=== PATIENT | female | born 1955 | race African-American/Black ===

== ENCOUNTER → 2016-07-10 | Day surgery (SDC) | payer OTHER ==
--- NOTE | 2016-07-14 14:15 | PATH ---
Surgical Pathology Report Patient Name: MIR CHRISTIANSON [facility]. Rec. #: [id number] /Age/Gender: 1955 (Age: 60) / F Account: [id number] Location: [facility] Taken: 07/10/2016 Received: 07/10/2016 Reported: 07/14/2016 Physicians: Ventura Garcia M.D. Specimen(s) Received LEFT BREAST SPECIMEN WITH MASS Clinical History Nonpalpable lesion, suspicious, highly suspicious/malignant Final Diagnosis LEFT BREAST, NEEDLE CORE BIOPSY: INVASIVE MAMMARY CARCINOMA WITH MUCINOUS FEATURES, INTERMEDIATE NUCLEAR GRADE, MEASURING 0.5 CM IN LENGTH MEASURED ON THE SLIDE. Results of Estrogen Receptor (ER) and Progesterone Receptor (WA) studies performed at [facility] are as follows: ER (clone [id number] mouse monoclonal antibody by [employer]): >95% nuclear staining with moderate intensity (Positive). WA (clone16 mouse monoclonal antibody by [employer]) : 0% nuclear staining (Negative). Positive and negative controls (internal if applicable) show appropriate results. Formalin fixation and cold ischemic times are within current ASCO/CAP recommendations for ER, WA and Her2 testing. Comment: Also see prior specimen [id number]. Assays for HER-2 and Ki67 are pending, and a report will follow. This case was discussed with BALDO Griffiths of Dr. Henderson office on July 14, 2015. Electronically Signed Usama Cope M.D. Addendum Reported: 07/15/2016 Addendum Diagnosis Results of Her2 (IHC) & Ki-67 studies performed at [place], [place] ([id number]) are as follows: Her2 IHC (EP3 from [employer], formerly known as [id number], using Pinzon Polymer Refine detection kit): 3+ POSITIVE Ki-67:~20% (Intermediate proliferative index) Positive and negative controls (internal if applicable) show appropriate results. Usama Cope M.D. Gross Description Received in formalin, labeled "left breast with mass," is a 2.5 x 2.3 x 0.3 cm aggregate of multiple salmon-yellow, irregular to cylindrical portions of fibroadipose tissue. The formalin is filtered and the specimen is entirely submitted in one cassette. Time to formalin fixation: 5 minutes Total formalin fixation time: Approximately 9 hours. 07/11/2016 saudi07/11/2016
== END | disposition home or self-care (01) ==
LOC: FMAMMOTONE 11:38
PROVIDERS: ATTEND Surgery
PROC: 0HBU3ZX Excision of Left Breast, Percutaneous Approach, Diagnostic (ICD-10-PCS; principal; 2016-07-10)
DX: N63 Unspecified lump in breast (principal); C50.312 Malignant neoplasm of lower-inner quadrant of left female breast
CPT/HCPCS: 19081; 88305-TC; 88342-TC

== ENCOUNTER 2016-07-31 12:18 | Day surgery (SDC) | payer OTHER ==
--- NOTE | 2016-07-10 14:24 | HP ---
Admitting History and Physical - Primary Care Physician PCP: Heike Henderson - Admission Chief Complaint: Metastatic breast cancer History of Present Illness: 60 year old postmenapausal female who was noted to have left breast thickening by her PCOP US showed edematous changes through out whole breat and markedly highly suspicious axillary lymph nodes. Mammogram showed diffuse thickening and mass 8 to 9:00 and 2:00. Left US core bx showed metastatic breast cancer consistent with breast Her2 positive. Left breast stereotactic core done today results pending. History Source: Patient - Past Medical History Additional Past Medical History: G6PD deficiency - Past Surgical History Past Surgical History: Yes: Additional Past Surgical History: 1978 benignthyroid tumor excised hernia repair 1993 right shoulder fibroid excised - Smoking History Smoking history: Never smoked Aproximately how many cigarettes per day: 0 - Alcohol/Substance Use Hx Alcohol Use: Yes (social) Home Medications - Allergies Allergies/Adverse Reactions: Allergies Allergy/AdvReac Type Severity Reaction Status Date / Time povidone-iodine Allergy Unknown Verified 01/21/12 13:55 [From Betadine] soap [From Betadine] Allergy Unknown Verified 01/21/12 13:55 Sulfa (Sulfonamide Allergy Unknown Verified 01/21/12 13:55 Antibiotics) [Sulfa(Sulfonamide Antibiotics)] aspirin Allergy Verified 07/10/16 14:36 vijay granger Allergy Verified 07/10/16 14:36 nitrofurazone [From Furacin] Allergy Verified 07/10/16 14:38 quinine Allergy Verified 07/10/16 14:37 - Home Medications Home Medications: Ambulatory Orders No Home Medications 0 dose .ROUTE UTDICT 01/21/12 Oxycodone HCl/Acetaminophen [Percocet 5-325 mg Tablet] 1 - 2 combo PO Q6H #0 tablet 01/21/12 Family Disease History - Family Disease History Family Disease History: CA: Grandparent (mat GM breast ca 61), Mother ( Breast ca 54) Physical Examination Constitutional: Yes: Well Nourished, No Distress Breast(s): Yes: Other (Left breast is larger and heavier than right . Core bx changes S/P bx skin thickening and peau d'orange in central left breast nipple retraction enlarge firm nodes left axilla Right breast and axilla negative) Problem List - Problems (1) Metastatic breast cancer Code(s): C50.919 - MALIGNANT NEOPLASM OF UNSP SITE OF UNSPECIFIED FEMALE BREAST C79.9 - SECONDARY MALIGNANT NEOPLASM OF UNSPECIFIED SITE Assessment/Plan Life port insertion
[2016-07-10 16:50] VITALS: BMI 36.9
[2016-07-31] MEDS ORDERED: ONDANSETRON 4 MG/2 ML VIAL IVPB PRN (15:18)
[2016-07-31] MEDS ORDERED: MIDAZOLAM HCL 2 MG/2 ML SINGLE DOSE VIAL ONE (15:27)
[2016-07-31] MEDS ORDERED: DEXTROSE 5%-0.45% SALINE 1,000 ML IV SCH (15:30)
[2016-07-31] MEDS ORDERED: ceFAZolin SODIUM 1 GM VIAL ONE (15:56)
[2016-07-31] MEDS ORDERED: KETOROLAC TROMETHAMINE 30 MG/1 ML VIAL ONE (16:03)
[2016-07-31] MEDS ORDERED: DEXAMETHASONE SOD PHOSPHATE 4 MG/1 ML VIAL ONE (16:03)
[2016-07-31] MEDS ORDERED: ONDANSETRON 4 MG/2 ML VIAL ONE (16:03)
[2016-07-31 17:41] VITALS: PULSE 71; TEMP 97.9
[2016-07-31 19:00] VITALS: BP 156/95
--- NOTE | 2016-08-01 15:33 | OP ---
DATE OF OPERATION: 07/31/2016 PREOPERATIVE DIAGNOSIS: Left breast cancer. POSTOPERATIVE DIAGNOSIS: Left breast cancer. PROCEDURE: Insertion of Lifeport. SURGEON: Heike Henderson MD and Luther Casas MD PRODUCT EVANGELIST: BALDO Mar ANESTHESIA: Local with 1% lidocaine and IV sedation. SPECIMEN: None. ESTIMATED BLOOD LOSS: Minimal. INDICATION FOR PROCEDURE: The patient is a 60-year-old female who noted left breast thickening. Imaging showed suspicious masses in the left breast. Core biopsy showed invasive cancer in the breast and metastatic disease to a lymph node. She is going to the operating room for placement of a Lifeport so she can start chemotherapy. The procedure, risks, and complications were discussed with the patient and her family prior to surgery. DESCRIPTION OF PROCEDURE: The patient was identified in the holding area. Informed consent was obtained. The right chest was marked for laterality. She was taken to the operating room and placed on the operating table in the supine position. Sequential compression devices were placed on both legs. She received antibiotics prior to surgery. She was sedated. The right chest and neck were prepped and draped in the usual fashion. A timeout was performed. An attempt was made to access the subclavian vein percutaneously. This was unsuccessful. The ultrasound was then used to identify the subclavian, and the vein was accessed under ultrasound guidance. A wire was then placed through the needle, and the needle was removed. A pocket was created in the right chest wall by incising the skin with a scalpel after infiltrating 1% lidocaine. A pocket was created, and the catheter was assembled by attaching the catheter to the port. It was flushed with heparinized saline. It was then placed into the pocket on the chest wall. The wire was then brought into the pocket created in the chest wall . The introducer and sheath were then placed over the wire, and the wire was removed. This was done under fluoroscopic guidance which showed the catheter entering easily. The catheter was then placed into the introducer. The catheter was placed easily into the vein and was seen to be entering the right chest under fluoroscopic guidance. The port was accessed through the skin. Good blood return was returned, and the port flushed easily. The port was then flushed with heparin. The incision was then closed. The skin was infiltrated with 0.5% Marcaine. After several sutures were placed, bleeding was noted from within the wound. The wound was opened, and a small amount of oozing was noted around the catheter entry site into the vein. Direct pressure was held, and the bleeding stopped. The incision was then closed using interrupted sutures of 3-0 Vicryl for the dermis and a running subcuticular closure of 4-0 Monocryl for the skin. The wound was cleaned, and a sterile dressing was applied. This was Steri-Strips and gauze plus tape acting as a pressure dressing. The patient tolerated the procedure well. She was taken to the ambulatory surgical area in satisfactory condition. A postprocedure chest x-ray showed no evidence of pneumothorax. Ventura [id number] MTDD
== END 2016-07-31 18:40 | disposition home or self-care (01) ==
LOC: FASU 12:18
PROVIDERS: ATTEND Surgery
PROC: B546ZZA Ultrasonography of Right Subclavian Vein, Guidance (ICD-10-PCS; 2016-07-31)
PROC: 05H533Z Insertion of Infusion Device into Right Subclavian Vein, Percutaneous Approach (ICD-10-PCS; principal; 2016-07-31 13:45)
DX: C50.912 Malignant neoplasm of unspecified site of left female breast (principal)
CPT/HCPCS: 71010-TC; 76000-TC; J1644

== ENCOUNTER 2017-03-06 06:34 | Inpatient (IN) | payer OTHER ==
--- NOTE | 2017-03-02 12:04 | HP ---
Admitting History and Physical - Primary Care Physician PCP: Heike Henderson - Admission Chief Complaint: left breast cancer History of Present Illness: 61 yo female s/p neoadjuvant chemo for a left breast cancer with mucinous features and positive left axillary lymph nodes, underwent a PET scan on 2016 which revealed that the previously seen left breast mass and left axillary adenopathy was no longer visualized. Cancer was ER pos/AR neg Her 2 pos. Patient is now to undergo right MRM with reconstruction. History Source: Patient Limitations to Obtaining History: No Limitations - Past Medical History Additional Past Medical History: G6PD deficiency - Past Surgical History Past Surgical History: Yes: Additional Past Surgical History: exc of benign thyroid lesion (1978) (1993) hernia repair () righ shoulder lesion removed () - Smoking History Smoking history: Never smoked Have you smoked in the past 12 months: No Aproximately how many cigarettes per day: 0 If you are a former smoker, when did you quit?: 1999 - Alcohol/Substance Use Hx Alcohol Use: Yes (social) Home Medications - Allergies Allergies/Adverse Reactions: Allergies Allergy/AdvReac Type Severity Reaction Status Date / Time povidone-iodine Allergy Unknown Verified 07/10/16 16:32 [From Betadine] soap [From Betadine] Allergy Unknown Verified 07/10/16 16:32 Sulfa (Sulfonamide Allergy Unknown Verified 07/10/16 16:32 Antibiotics) [Sulfa(Sulfonamide Antibiotics)] aspirin Allergy Verified 07/10/16 16:32 vijay granger Allergy Verified 07/10/16 16:32 nitrofurazone [From Furacin] Allergy Verified 07/10/16 16:32 quinine Allergy Verified 07/10/16 16:32 - Home Medications Home Medications: Ambulatory Orders Telmisartan/Amlodipine [Telmisartan-Amlodipine 40-5 mg] 1 tab PO DAILY 07/10/16 Oxycodone HCl/Acetaminophen [Percocet 5-325 mg Tablet] 1 - 2 tab PO Q6H PRN #20 tab MDD 6 07/31/16 Family Disease History - Family Disease History Family Disease History: CA: Grandparent (mat GM breast ca 61), Mother ( Breast ca 54) Review of Systems - Review of Systems Cardiovascular: reports: No Symptoms Respiratory: reports: No Symptoms Physical Examination Constitutional: Yes: Well Nourished, Calm Breast(s): Yes: Other (Skin thickening and peau d'orange in the central left breast has resolved. No nipple retraction noted. Palpable left 12-1 oclock 4 cm mass. No other suspicious masses or adenopathy noted bilaterally.) Problem List - Problems (1) Metastatic breast cancer Code(s): C50.919 - MALIGNANT NEOPLASM OF UNSP SITE OF UNSPECIFIED FEMALE BREAST C79.9 - SECONDARY MALIGNANT NEOPLASM OF UNSPECIFIED SITE Assessment/Plan Plan: Left MRM with bilateral reconstruction
[2017-03-06] MEDS ORDERED: ceFAZolin SODIUM 1 GM VIAL ONE ×4 (08:00→20:37)
[2017-03-06] MEDS ORDERED: SUCCINYLCHOLINE CHLORIDE 200 MG/10 ML VIAL ONE (08:00)
[2017-03-06] MEDS ORDERED: PROPOFOL 20 ML ONE ×2 (08:00)
[2017-03-06] MEDS ORDERED: ROCURONIUM BROMIDE 50 MG/5 ML VIAL ONE ×2 (08:01→09:11)
[2017-03-06] MEDS ORDERED: MIDAZOLAM HCL 2 MG/2 ML SINGLE DOSE VIAL ONE (08:01)
[2017-03-06] MEDS ORDERED: SODIUM CHLORIDE 0.9% P/F 10 ML VIAL IJ ONE ×2 (08:03→08:45)
[2017-03-06] MEDS ORDERED: LIDOCAINE HCL/PF 2% SDV 5ML VIAL ONE (08:05)
[2017-03-06] MEDS ORDERED: ONDANSETRON 4 MG/2 ML VIAL IVPB PRN (08:18)
[2017-03-06] MEDS ORDERED: ACETAMINOPHEN 325 MG TABLET (FP) PO PRN (08:18)
[2017-03-06] MEDS ORDERED: ZOLPIDEM TARTRATE 5 MG TABLET PO PRN (08:18)
[2017-03-06] MEDS ORDERED: LIDOCAINE HCL 2% JELLY (5 ML/TUBE) ONE (08:23)
[2017-03-06] MEDS ORDERED: ceFAZolin SODIUM 1 GM VIAL IVPB ONE (08:40)
[2017-03-06] MEDS ORDERED: ePHEDrine SULFATE 50 MG/1 ML AMPULE ONE (08:45)
[2017-03-06] MEDS ORDERED: hydrALAZINE HCL 20 MG/ML VIAL ONE (09:22)
[2017-03-06] MEDS ORDERED: HYDROmorphone HCL/PF 1 MG/ML VIAL (FOR PYXIS CHARGING ONLY) ONE (09:51)
[2017-03-06] MEDS ORDERED: GENTAMICIN SO4 80 MG/2 ML VIAL ONE (10:10)
--- NOTE | 2017-03-06 13:39 | OP ---
Operative Note - Note: Operative Date: 03/06/17 Pre-Operative Diagnosis: left breast cancer Operation: left breast reconstruction with tissue kitchen supervisor and ADM, right breast reduction Findings: above Implants: natrelle [id number] Post-Operative Diagnosis: Same as Pre-op Surgeon: Calvin Moreland Check Writer Salesperson: Jamarcus Gao Anesthesia: General Specimens Removed: skin left breast, skin and tissue right breast Estimated Blood Loss (mls): 200 Drains & Tubes with Location: mario x 1 right, x2 left
[2017-03-06] MEDS ORDERED: HYDROmorphone *PCA* 10MG/50ML DISP.SYRIN PCA ONE (13:47)
[2017-03-06] MEDS ORDERED: HYDROmorphone HCL CARPU-JECT 2 MG/1 ML DISP.SYRIN ONE (13:47)
[2017-03-06] MEDS ORDERED: HYDROmorphone HCL CARPU-JECT 1 MG/1 ML DISP.SYRIN IVPUSH PRN (13:53)
[2017-03-06] MEDS ORDERED: DEXAMETHASONE SOD PHOSPHATE 4 MG/1 ML VIAL IVPUSH PRN (13:54)
[2017-03-06] MEDS ORDERED: PROMETHAZINE HCL 25 MG/1 ML VIAL IVPB PRN (13:54)
[2017-03-06] MEDS ORDERED: HYDROmorphone *PCA* 10MG/50ML DISP.SYRIN PCA SCH (14:00)
--- NOTE | 2017-03-06 17:38 | SURG ---
Surgery Newspaper Photographer Note Newspaper Photographer: Jamarcus Gao PA-C Date of Service: 03/06/17 Diagnosis: left breast cancer Procedure: Left breast reconstruction with tissue tube lancer and ADM, right breast reduction I was present for the entirety of the operative procedure. For further detail, please refer to operative report. Visit type - Case Type Case Type: Scheduled Admission - New patient This patient is new to me today: Yes Date on this admission: 03/06/17
[2017-03-06] MEDS: DEXTROSE 5%-0.45% SALINE 1,000 ML IV SCH (17:50)
[2017-03-06] MEDS: CEFAZOLIN 1 GM/D5W 50 ML IVPB SCH ×2 (17:53→18:07)
[2017-03-06] MEDS ORDERED: DEXTROSE 5%-WATER - 50 ML IVPB ONE (20:38)
[2017-03-06] MEDS: CEFAZOLIN 1 GM in DEXTROSE 5%-WATER - 50 ML IVPB SCH (21:24)
[2017-03-06] MEDS ORDERED: amLODIPine BESYLATE 10 MG TABLET (FP) PO SCH (22:00)
[2017-03-07] MEDS ORDERED: ceFAZolin SODIUM 1 GM VIAL ONE ×4 (02:16→20:16)
[2017-03-07] MEDS ORDERED: DEXTROSE 5%-WATER - 50 ML IVPB ONE ×4 (02:16→20:16)
[2017-03-07] MEDS: CEFAZOLIN 1 GM in DEXTROSE 5%-WATER - 50 ML IVPB SCH ×4 (02:33→20:23)
[2017-03-07] MEDS: DEXTROSE 5%-0.45% SALINE 1,000 ML IV SCH ×2 (02:33→09:58)
--- NOTE | 2017-03-07 07:51 | OP ---
DATE OF OPERATION: 03/06/2017 PREOPERATIVE DIAGNOSIS: Left breast cancer. POSTOPERATIVE DIAGNOSIS: Left breast cancer. PROCEDURE: Left modified radical mastectomy and insertion of tissue trekking guide, right breast reduction. SURGEON: Heike Henderson MD CO-SURGEON: Calvin Moreland MD APPLE PICKER: BALDO Hurley ANESTHESIA: General. SPECIMENS: 1. Left breast and axillary contents. 2. Additional axillary nodes. ESTIMATED BLOOD LOSS: Minimal. DRAINS: Four No. 10 J-P. FINDINGS: See procedure. INDICATION FOR PROCEDURE: The patient is a 61-year-old woman who had abnormal imaging in 2013 but never had the recommended biopsy at that time. In May 2016, her physician noted thickening of the left breast and sent her for bilateral breast ultrasound, which showed edematous changes throughout the left breast and enlarged axillary lymph nodes. Mammogram showed diffuse skin thickening of the left breast and suspicious masses at 8 o'clock to 9 o'clock and at 2 o'clock. Biopsy of the breast masses showed ER positive/KY negative, HER2 positive invasive mammary cancer with mucinous features. Biopsy of a left axilla lymph node showed findings consistent with metastatic carcinoma. She had no evidence of distal metastases on PET CT. She had 6 months of THP chemotherapy. Follow up studies showed a treatment response with persistent skin thickening and edema. She was recommended a left modified radical mastectomy with reconstruction. She is going to the operating room today for the indicated procedure as well as reduction of the right breast. DESCRIPTION OF PROCEDURE: The patient was identified in the holding area. Informed consent was on the chart. The left breast was identified with a marker. Sequential compression devices were placed on both legs. She was taken to the operating room and placed on the operating room table in a supine position. She received antibiotics prior to surgery. General anesthesia was initiated. The right and left breasts and left arm were prepped and draped in the usual fashion. A time-out was performed. Dr. Moreland performed a right breast reduction, which he will dictate in a separate procedure. The left mastectomy was performed first making an elliptical incision around the nipple areolar complex. Examination of the breast did show skin thickening and edema. A superior skin flap was raised using electrocautery. This flap continued towards the clavicle. In a similar fashion, flaps were created medially towards the border with the sternum and laterally to the axilla. Inferiorly, the flap continued to the junction with the abdominal musculature. There were multiple enlarged blood vessels, and bleeding did occur, which was controlled with electrocautery. Once the tissue was completely mobilized, the breast was removed along with the underlying pectoralis major fascia. The axillary dissection was performed in continuity. The tissue at the edge of the pectoralis major was divided, and the dissection continued down along the chest wall. The clavipectoral fascia was incised. This exposed the axillary fat. The axillary vein was identified, and tissue inferior to the axillary vein was included with the dissection. The specimen also included tissue anterior to the anterior dorsi muscle. The tissue and breast were removed and labeled as left breast and axillary contents. The specimen was placed in formalin after being labeled with silk sutures with a long lateral stitch and a short superior stitch. Examination of the operative field showed some chey tissue remaining. This tissue was grasped with a clamp and bluntly dissected free from the axillary tissue. This tissue was sent separately as additional axillary contents. During this procedure, the thoracodorsal nerve was inadvertently severed. It was reapproximated by Dr. Moreland using interrupted sutures of 6-0 nylon. The operative field was inspected for hemostasis. The field was irrigated. The procedure then continued with placement of a tissue trekking guide by Dr. Moreland, which he will dictate as a separate procedure. He will also dictate placement of bilateral drains. At the end of my portion of the procedure, the patient had remained stable throughout the procedure. All lap, sponge, and instrument counts were correct. At the conclusion of the reconstruction, she was taken to the PACU in stable condition. Ventura [id number]
[2017-03-07] MEDS: CEFAZOLIN 1 GM/D5W 50 ML IVPB SCH (08:04)
--- NOTE | 2017-03-07 09:42 | PN ---
Progress Note, Physician Chief Complaint: left breast cancer History of Present Illness: The patient was admitted postoperatively after a left breast modified radical mastectomy with purchasing department clerk reconstruction and right breast mastopexy reduction. - Current Medication List Current Medications: Active Medications Acetaminophen (Tylenol -) 650 mg PO Q4H PRN PRN Reason: FEVER Amlodipine Besylate (Norvasc -) 10 mg PO HS VALERIE Last Admin: 03/06/17 21:24 Dose: Not Given Dexamethasone Sodium Phosphate (Decadron Injection -) 4 mg IVPUSH ONCE PRN PRN Reason: NAUSEA AND/OR VOMITING Diphenhydramine HCl (Benadryl Injection -) 12.5 mg IVPUSH ONCE PRN PRN Reason: FOR ITCHING Docusate Sodium (Colace -) 100 mg PO BID [facility] Heparin Sodium (Porcine) (Heparin -) 5,000 unit SQ BID VALERIE Hydromorphone HCl (Dilaudid Mailroom Associate -) 0 mg SAW OFFBEARER SAW OFFBEARER VALERIE PRN Reason: Protocol Stop: 03/13/17 13:54 Last Admin: 03/07/17 08:03 Dose: Not Given Dextrose/Sodium Chloride (D5-1/2ns -) 1,000 mls @ 100 mls/hr IV ASDIR VALERIE Last Admin: 03/07/17 02:33 Dose: 100 mls/hr Cefazolin Sodium 1 gm/ (Dextrose) 50 mls @ 100 mls/hr IVPB Q6H-IV VALERIE Last Admin: 03/07/17 02:33 Dose: 100 mls/hr Losartan Potassium (Cozaar -) 50 mg PO DAILY [facility] Ondansetron HCl (Zofran Injection) 4 mg IVPB Q6H PRN PRN Reason: NAUSEA AND/OR VOMITING Promethazine HCl (Phenergan Injection -) 12.5 mg IVPB Q6H PRN PRN Reason: NAUSEA AND/OR VOMITING Zolpidem Tartrate (Ambien -) 5 mg PO HS PRN PRN Reason: Insomnia - Objective Vital Signs: Vital Signs Temperature 98.3 F 03/07/17 07:52 Pulse Rate 79 03/07/17 07:52 Respiratory Rate 20 03/07/17 07:52 Blood Pressure 168/89 03/07/17 07:52 O2 Sat by Pulse Oximetry (%) 98 03/06/17 21:00 Constitutional: Yes: Well Nourished, No Distress, Calm Eyes: Yes: WNL HENT: Yes: Atraumatic, Normocephalic Neck: Yes: WNL Cardiovascular: Yes: Regular Rate and Rhythm Respiratory: Yes: Regular, CTA Bilaterally Gastrointestinal: Yes: Normal Bowel Sounds, Soft ...Rectal Exam: Yes: Deferred Genitourinary: Yes: WNL Breast(s): Yes: Other (Wounds clean, dry, and intact. Drains functioning well. Dressing changed.) Extremities: Yes: WNL Integumentary: Yes: WNL Wound/Incision: Yes: Clean/Dry, Well Approximated Neurological: Yes: Alert, Oriented ...Motor Strength: WNL Psychiatric: Yes: WNL Problem List - Problems (1) Metastatic breast cancer Assessment/Plan: The patient is doing well POD#1 s/p left modified radical mastectomy and purchasing department clerk reconstruction with right breast mastopexy reduction. Her wounds are clean, dry, and intact. Dressing changed today. Drains functioning well. She has good kpian control on SAW OFFBEARER. OOB today and remove call today. Continue IV antibiotics. Will stop SAW OFFBEARER in AM tomorrow with possible discharge Thursday or Thursday if good pain control off SAW OFFBEARER. Code(s): C50.919 - MALIGNANT NEOPLASM OF UNSP SITE OF UNSPECIFIED FEMALE BREAST C79.9 - SECONDARY MALIGNANT NEOPLASM OF UNSPECIFIED SITE
[2017-03-07] MEDS ORDERED: HYDROmorphone *PCA* 10MG/50ML DISP.SYRIN PCA SCH (09:44)
--- NOTE | 2017-03-07 09:51 | DS ---
Physical Examination Vital Signs: Vital Signs Temperature 98.3 F 03/07/17 07:52 Pulse Rate 79 03/07/17 07:52 Respiratory Rate 20 03/07/17 07:52 Blood Pressure 168/89 03/07/17 07:52 O2 Sat by Pulse Oximetry (%) 98 03/06/17 21:00 Constitutional: Yes: Well Nourished, No Distress, Calm Eyes: Yes: WNL HENT: Yes: Atraumatic, Normocephalic Neck: Yes: WNL Cardiovascular: Yes: Regular Rate and Rhythm Respiratory: Yes: Regular, CTA Bilaterally Gastrointestinal: Yes: Normal Bowel Sounds, Soft ...Rectal Exam: Yes: Deferred Renal/: Yes: WNL Breast(s): Yes: Other (Mastectomy and breast wounds clean, dry, and intact. Drains functioning well Skin flaps viable.) Musculoskeletal: Yes: WNL Extremities: Yes: WNL Integumentary: Yes: WNL Wound/Incision: Yes: Clean/Dry, Well Approximated Neurological: Yes: Alert, Oriented Psychiatric: Yes: WNL Discharge Summary Reason For Visit: LEFT BREAST CANCER Left breast cancer Procedures: Principal: Left breast Modified Radical Mastectomy with imaging technician reconstruction and right breast reduction mastopexy Hospital Course: The patient was admitted postoperatively for pain and wound management. She did well and had good pain control and wounds were clean, dry, and intact. MANGANESE WHEELER was stopped POD#2 and she was ambulating and was felt stable for discharge by POD#3. She will be sent home on percocet for pain and cefadroxil antibiotics. She will follow up with Dr. Henderson and Dr. Moreland in 1 week. Condition: Good - Instructions Diet, Activity, Other Instructions: Post Operative Instructions - [facility] We hope your recovery will be uneventful. For those of you who have been given general anesthesia, there is a possibility you might have some lightheadedness and possibly nausea. It is important that each patient, especially those who have had general anesthesia, follow these instructions, please: 1. Do NOT operate a motor vehicle for 24 hours. 2. Do NOT drink any alcoholic beverages for 24 hours. 3. Do NOT take any sedatives, narcotics, or tranquilizers for 24 hours unless specifically ordered by your surgeon. 4. Do NOT undertake any strenuous exercise or outside activity for 24 hours unless specifically permitted by your surgeon. 5. Eat light foods that are easy to digest. If you have any problems with nausea and vomiting, lie down and rest. If it continues, call your surgeon. 6. Call your surgeon AT ONCE if you have problems with: a. Bleeding b. Urinating c. Excessive pain or drainage d. Numbness If any problems occur, call your physician first. If you cannot reach him/her, call the Ambulatory Surgery Unit at [phone], or the Emergency Room at . Follow up with Drs. Casas / Romana in 7 days. Medication: Vicodin E-S OR Percocet 1-2 tablets every 4-6 hrs as needed for 5-7 days. Wound Care: Keep wound dry and clean for 48 hours. You may remove the dressing after 48 hours and may shower. Keep steri-strips in place until follow-up appointment No heavy lifting or strenuous activities. BREAST SURGERY INSTRUCTIONS Rashel Casas M.D., FACS Luther Casas M.D., FACS Mendy Avendano M.D., FACS 1. Please call the office at to make a follow up appointment with your surgeon. This number can be also used for any urgent issues you may have. 2. Call us immediately if any of the following occur: *Bleeding from the incision or drain site (a small amount is normal) *Fever or chills *Redness and worsening tenderness around the surgical site *Drainage of pus or fluid from the incision or drain site 3. You may change the surgical dressing two (2) days after your surgery, and may shower then. If you have drains, you may shower after they have been removed, until then take a sponge bath. 4. It is normal for there to be some bruising and tenderness around the surgical site, and the breast may also be firm in this area. 5. Please wear a comfortable bra (sports or surgical bra) all day and all night until your first follow-up visit with your surgeon. 6. The pain medicine you have been prescribed may make you constipated; make sure you drink plenty of water. You may use an over the counter laxative if needed. 7. You may resume your normal diet after surgery, although you may want to avoid rich foods for the first twenty-four (24) hours after surgery. Alcoholic drinks should be avoided while taking the prescribed pain medicine. 8. You may resume normal activities as long as there is no discomfort, but do not do upper body exercises until after your follow-up appointment. Do not lift anything heavier than a large phone book. You may resume driving once you have stopped taking the prescribed pain medicine and feel comfortable doing arm movements. WEAR bra NO shower, empty and record Sb output twice daily Referrals: Heike Henderson MD [Staff Physician] - Calvin Moreland MD [Staff Physician] - Disposition: HOME - Home Medications Comprehensive Discharge Medication List: Ambulatory Orders Amlodipine Besylate 10 mg PO HS 03/06/17 Cefadroxil 500 mg PO BID #20 capsule 03/06/17 Docusate Sodium [Colace -] 100 mg PO BID 03/06/17 Losartan Potassium 50 mg PO DAILY 03/06/17 Oxycodone HCl/Acetaminophen [Percocet 5-325 mg Tablet] 1 - 2 tab PO Q6H PRN #30 tab MDD 6 03/06/17
[2017-03-07] MEDS: LOSARTAN POTASSIUM 50 MG TABLET (FP) PO SCH ×3 (09:58→22:02)
[2017-03-07] MEDS: DOCUSATE SODIUM 100 MG CAPSULE (FP) PO SCH ×3 (10:03→22:02)
[2017-03-07] MEDS: HEPARIN NA (PORCINE) 5,000 UNITS/ML 1ML VIAL SQ SCH ×2 (10:05→22:02)
[2017-03-07] MEDS: amLODIPine BESYLATE 10 MG TABLET (FP) PO SCH (12:08)
--- NOTE | 2017-03-07 14:27 | PN ---
Progress Note (short form) - Note Progress Note: Anesthesiology Post-op/Pain Service POD#1 s/p left breast mastectomy,axillary node dissection with reconstruction and right breast reduction under GA with post-op dilaudid AMPOULE FILLER AND SEALER. Pt. feeling well but does state that when she moves, her pain is close to 10/10 on the left side. She has been using the AMPOULE FILLER AND SEALER with reasonable relief and is hesitant to stop it at this time. Will reevaluate tomorrow and possibly transition to PO meds at that time. Continue AMPOULE FILLER AND SEALER for today. VSS.
[2017-03-08] MEDS: DEXTROSE 5%-0.45% SALINE 1,000 ML IV SCH (00:22)
[2017-03-08] MEDS ORDERED: DEXTROSE 5%-WATER - 50 ML IVPB ONE ×3 (02:48→20:31)
[2017-03-08] MEDS ORDERED: ceFAZolin SODIUM 1 GM VIAL ONE ×4 (02:48→20:30)
[2017-03-08] MEDS: CEFAZOLIN 1 GM in DEXTROSE 5%-WATER - 50 ML IVPB SCH ×4 (03:07→20:55)
[2017-03-08] MEDS: amLODIPine BESYLATE 10 MG TABLET (FP) PO SCH (09:29)
[2017-03-08] MEDS: HEPARIN NA (PORCINE) 5,000 UNITS/ML 1ML VIAL SQ SCH ×2 (09:29→22:31)
[2017-03-08] MEDS: DOCUSATE SODIUM 100 MG CAPSULE (FP) PO SCH ×2 (09:29→22:31)
[2017-03-08] MEDS: ACETAMINOPHEN 325 MG TABLET (FP) PO PRN ×2 (09:32→14:28)
[2017-03-08] MEDS: oxyCODONE HCL 5 MG TABLET PO PRN ×3 (09:42→19:01)
--- NOTE | 2017-03-08 09:56 | PN ---
Progress Note, Physician Chief Complaint: left breast cancer History of Present Illness: The patient was admitted postoperatively after a left breast modified radical mastectomy with rib stiffener and heel dipper reconstruction and right breast mastopexy reduction. - Current Medication List Current Medications: Active Medications Acetaminophen (Tylenol -) 650 mg PO Q4H PRN PRN Reason: FEVER Acetaminophen (Tylenol -) 325 mg PO Q4H PRN PRN Reason: PAIN Stop: 03/11/17 08:00 Last Admin: 03/08/17 09:32 Dose: 325 mg Amlodipine Besylate (Norvasc -) 10 mg PO DAILY [facility] Last Admin: 03/08/17 09:29 Dose: 10 mg Dexamethasone Sodium Phosphate (Decadron Injection -) 4 mg IVPUSH ONCE PRN PRN Reason: NAUSEA AND/OR VOMITING Diphenhydramine HCl (Benadryl Injection -) 12.5 mg IVPUSH ONCE PRN PRN Reason: FOR ITCHING Docusate Sodium (Colace -) 100 mg PO BID [facility] Last Admin: 03/08/17 09:29 Dose: 100 mg Heparin Sodium (Porcine) (Heparin -) 5,000 unit SQ BID [facility] Last Admin: 03/08/17 09:29 Dose: 5,000 unit Cefazolin Sodium 1 gm/ (Dextrose) 50 mls @ 100 mls/hr IVPB Q6H-IV [facility] Last Admin: 03/08/17 09:28 Dose: 100 mls/hr Losartan Potassium (Cozaar -) 50 mg PO HS [facility] Last Admin: 03/07/17 22:02 Dose: 50 mg Ondansetron HCl (Zofran Injection) 4 mg IVPB Q6H PRN PRN Reason: NAUSEA AND/OR VOMITING Oxycodone HCl (Roxicodone -) 5 mg PO Q4H PRN PRN Reason: PAIN Last Admin: 03/08/17 09:42 Dose: 5 mg Promethazine HCl (Phenergan Injection -) 12.5 mg IVPB Q6H PRN PRN Reason: NAUSEA AND/OR VOMITING Zolpidem Tartrate (Ambien -) 5 mg PO HS PRN PRN Reason: Insomnia - Objective Vital Signs: Vital Signs Temperature 98.1 F 03/08/17 07:34 Pulse Rate 68 03/08/17 07:34 Respiratory Rate 20 03/08/17 07:34 Blood Pressure 153/79 03/08/17 07:34 O2 Sat by Pulse Oximetry (%) 95 03/07/17 21:00 Constitutional: Yes: Well Nourished, No Distress, Calm Eyes: Yes: WNL HENT: Yes: Atraumatic, Normocephalic Neck: Yes: WNL Respiratory: Yes: Regular, CTA Bilaterally Gastrointestinal: Yes: Normal Bowel Sounds, Soft ...Rectal Exam: Yes: Deferred Genitourinary: Yes: Other (stress incontinence) Breast(s): Yes: Other (Wounds clean, dry, and intact. Drains functioning well.) Musculoskeletal: Yes: Back Pain Extremities: Yes: WNL Integumentary: Yes: WNL Wound/Incision: Yes: Clean/Dry, Well Approximated Neurological: Yes: Alert, Oriented Psychiatric: Yes: WNL Problem List - Problems (1) Metastatic breast cancer Assessment/Plan: The patient is POD#2 s/p left modified radical mastectomy with rib stiffener and heel dipper reconstruction and right breast reduction mastopexy. Wounds clean, dry, and intact. Drains functioning well. Dressing changed at bedside. Afeb/VSS. Patient taken off INSURANCE ADJUSTOR this AM and is now on percocet. Still complaining of discomfort and with limited ambulation. Will continue OOB ambulating today and likely discharge tomorrow. Will keep on cefadroxil and percocet on discharge. Code(s): C50.919 - MALIGNANT NEOPLASM OF UNSP SITE OF UNSPECIFIED FEMALE BREAST C79.9 - SECONDARY MALIGNANT NEOPLASM OF UNSPECIFIED SITE
--- NOTE | 2017-03-08 19:34 | PN ---
Progress Note (short form) - Note Progress Note: POD #2 - s/p left mastectomy with axillary node dissection, and reconstruction/ right breast reduction under general anesthesia. VSS. Pt. doing well, sitting up comfortably in bed. No complaints. Dilaudid COIN PURSE ASSEMBLER discontinued earlier today. Comfortable with po percocet. No apparent anesthetic complications noted. Continue current care.
[2017-03-08] MEDS: LOSARTAN POTASSIUM 50 MG TABLET (FP) PO SCH (22:31)
[2017-03-09] MEDS: CEPHALEXIN MONOHYDRATE 500 MG CAPSULE (UD) PO SCH ×3 (00:01→12:56)
[2017-03-09] MEDS: oxyCODONE HCL 5 MG TABLET PO PRN ×2 (02:03→09:24)
[2017-03-09 06:58] VITALS: BP 147/91; PULSE 81; TEMP 98.6
[2017-03-09] MEDS: ACETAMINOPHEN 325 MG TABLET (FP) PO PRN (09:30)
[2017-03-09] MEDS: HEPARIN NA (PORCINE) 5,000 UNITS/ML 1ML VIAL SQ SCH ×2 (10:16→10:35)
[2017-03-09] MEDS: DOCUSATE SODIUM 100 MG CAPSULE (FP) PO SCH (10:16)
[2017-03-09] MEDS: amLODIPine BESYLATE 10 MG TABLET (FP) PO SCH (10:16)
--- NOTE | 2017-03-09 10:41 | PN ---
Progress Note, Physician Chief Complaint: left breast cancer History of Present Illness: The patient was admitted postoperatively after a left breast modified radical mastectomy with car driver reconstruction and right breast mastopexy reduction. - Current Medication List Current Medications: Active Medications Acetaminophen (Tylenol -) 650 mg PO Q4H PRN PRN Reason: FEVER Last Admin: 03/08/17 19:00 Dose: 650 mg Acetaminophen (Tylenol -) 325 mg PO Q4H PRN PRN Reason: PAIN Stop: 03/11/17 08:00 Last Admin: 03/09/17 09:30 Dose: 325 mg Amlodipine Besylate (Norvasc -) 10 mg PO DAILY [facility] Last Admin: 03/09/17 10:16 Dose: 10 mg Cephalexin HCl (Keflex -) 500 mg PO Q6HPO [facility] Last Admin: 03/09/17 06:07 Dose: 500 mg Dexamethasone Sodium Phosphate (Decadron Injection -) 4 mg IVPUSH ONCE PRN PRN Reason: NAUSEA AND/OR VOMITING Diphenhydramine HCl (Benadryl Injection -) 12.5 mg IVPUSH ONCE PRN PRN Reason: FOR ITCHING Docusate Sodium (Colace -) 100 mg PO BID [facility] Last Admin: 03/09/17 10:16 Dose: Not Given Heparin Sodium (Porcine) (Heparin -) 5,000 unit SQ BID [facility] Last Admin: 03/09/17 10:35 Dose: Not Given Losartan Potassium (Cozaar -) 50 mg PO HS [facility] Last Admin: 03/08/17 22:31 Dose: 50 mg Ondansetron HCl (Zofran Injection) 4 mg IVPB Q6H PRN PRN Reason: NAUSEA AND/OR VOMITING Oxycodone HCl (Roxicodone -) 5 mg PO Q4H PRN PRN Reason: PAIN Last Admin: 03/09/17 09:24 Dose: 5 mg Promethazine HCl (Phenergan Injection -) 12.5 mg IVPB Q6H PRN PRN Reason: NAUSEA AND/OR VOMITING Zolpidem Tartrate (Ambien -) 5 mg PO HS PRN PRN Reason: Insomnia - Objective Vital Signs: Vital Signs Temperature 98.6 F 03/09/17 06:00 Pulse Rate 81 03/09/17 06:00 Respiratory Rate 20 03/09/17 06:00 Blood Pressure 147/91 03/09/17 06:00 O2 Sat by Pulse Oximetry (%) 95 03/08/17 21:00 Constitutional: Yes: Well Nourished, No Distress, Calm Eyes: Yes: WNL HENT: Yes: Atraumatic, Normocephalic Neck: Yes: WNL Cardiovascular: Yes: Regular Rate and Rhythm Respiratory: Yes: Regular, CTA Bilaterally Gastrointestinal: Yes: Normal Bowel Sounds, Soft ...Rectal Exam: Yes: Deferred Genitourinary: Yes: WNL Breast(s): Yes: Other (mastectomy wound clean, dry, and intact. Drains functioning well.) Musculoskeletal: Yes: WNL Extremities: Yes: WNL Integumentary: Yes: WNL Wound/Incision: Yes: Clean/Dry, Well Approximated Neurological: Yes: Alert, Oriented Psychiatric: Yes: WNL Problem List - Problems (1) Metastatic breast cancer Assessment/Plan: The patient is doing well POD#3 s/p left mastectomy and car driver reconstruction. Wounds clean, dry, and intact. Dressing changed at bedside. Drains functioning well. Good pain control now on percocet. Stable for discharge today. Home on percocet for pain and cefadroxil antibiotics. Son taught GERRI drain managment. Patient to follow up at the end of the week for postoperative follow up. Code(s): C50.919 - MALIGNANT NEOPLASM OF UNSP SITE OF UNSPECIFIED FEMALE BREAST C79.9 - SECONDARY MALIGNANT NEOPLASM OF UNSPECIFIED SITE
--- NOTE | 2017-03-10 16:46 | OP ---
DATE OF OPERATION: 03/06/2017 TITLE OF PROCEDURE: 1. Left-sided breast reconstruction using tissue oliver filter operator. 3. Left-sided breast reconstruction using acellular dermal matrix allograft. 3. Right-sided breast reduction. 4. Spy intraoperative angiography assessment of viability of mastectomy flaps interpretation. PREOPERATIVE DIAGNOSES: 1. Left-sided angiosarcoma of breast. 2. 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 3. Right-sided disproportion of reconstructed breast. INDICATION FOR PROCEDURE: The patient is marked in the holding area. Risks, benefits, and alternatives to the procedure are discussed. The patient is awake and aware of all incisions and resulting scars. She understands the risks inherent of both breast reconstruction with an implant as well as a mastectomy as well as a breast reduction. DESCRIPTION OF PROCEDURE: She is then brought to the operating room and placed in a supine position. She is prepped and draped and positioned by Dr. Heike Henderson and her team. Timeout is called. Patient, procedure, side and sites are verified. Rosales catheter is placed prior to starting the procedure. The patient is given antibiotics preoperatively. Sequential compression devices are applied bilaterally. At this point, the left-sided mastectomy is being performed while I begin the right-sided breast reduction. A medial pedicle is planned which is 11 cm in width. The nipple is sighted at 22 cm from the sternal notch. A Alejandro-type, inverted-T pattern reduction pattern is planned. A 42-mm nipple-areolar cookie cutter is used. The breast is placed under tourniquet. The 11-cm width pedicle is de-epithelialized with the exception of the nipple/areola. At this point, incisions are made along the skin resection pattern and preserving the pedicle to the deep pectoral perforating vessels as well as to the medial skin flap. The tissue in between the pedicle and the skin flaps is excised. The tissue weight is 512 g. Hemostasis is meticulously achieved. A size 10 flat GERRI drain is brought out through the lateral extent of the incision. The inverted-T point is closed first with a half-buried mattress 0 Prolene suture. The remainder of the skin flaps are tailor tacked in position, and closure is then performed with a series of interrupted, buried, deep dermal 3-0 Monocryl suture along the vertical and horizontal limbs, followed by a running subcuticular 3-0 Monocryl suture along the vertical and horizontal limbs. The drain is secured with a 3-0 silk drain suture on the lateral extent of the incision. The nipple/areola is then inset with a series of interrupted, buried, deep dermal 4-0 Monocryl suture, followed by a running subcuticular 4-0 Monocryl suture. The nipple/areola is pink and viable circumferentially around its dermal bleeding border. Attention is then directed toward the left side where the mastectomy was just being completed. I was notified that there was an injury to the thoracodorsal nerve during the mastectomy. This was identified, and using 4-1/2 power loupe magnification, the proximal and distal ends of the thoracodorsal nerve are identified. The injured ends are divided with a fresh 10-blade scalpel until clear of viable healthy fascicles are able to be seen. The repair is then performed with an epineural 7-0 nylon suture circumferentially around the nerve. An anatomic repair is able to be identified with 4-/12 power loupe magnification. The reconstruction was then further performed as follows. The lateral free edge of the pectoralis major muscle is identified. It is elevated, and a subpectoral pocket is dissected, leaving the inferior attachments of the pectoralis major muscle intact. The inframammary fold is lowered 1.5 cm to match the contralateral side inferiorly and laterally. DermACELL acellular dermal matrix is then prepared, oriented, and brought onto the field. It is secured to the inframammary fold and lateral mammary fold with a running, locking 2-0 PDS suture. The wound is copiously irrigated with triple-antibiotic solution. Hemostasis is meticulously achieved. Triple-antibiotic solution is a gram of Ancef, 80 mg gentamicin, and 50,000 units of bacitracin within a liter of saline. An [employer] Systemse 133 [id number] tissue oliver filter operator is brought into the field, handled with only sterile new gloves, instruments, and triple-antibiotic solution; evacuated of all air, placed into the pocket between the pectoralis major muscle and the DermACELL acellular dermal matrix. It is oriented properly using the suture tabs. It is secured at 2 separate points with 2-0 PDS suture. It is inflated to 240 mL of normal saline using a closed-filling system sterilely. The lateral free edge of the pectoralis major muscle is then repaired to the inferior free edge of the acellular dermal matrix. At this point, the skin is tailor tacked. Spy intraoperative angiography is then performed. The Spy is interpreted by Dr. Moreland, and the tissue appeared to be well perfused globally. Free skin edges are excised. The dog ears medial and laterally are excised. Size 10 flat GERRI drains were brought out through lateral stab wound incisions, are secured with 3-0 silk drain sutures. One is placed in the inferior recess of the wound. A second is placed in the superior recess of the wound. Closure is then performed of the mastectomy flaps with a running 3-0 Monocryl suture within the deep fatty capsular tissue of the breast, followed by a series of interrupted, buried, deep dermal 3-0 Monocryl suture, followed by a running, subcuticular 3-0 Monocryl suture. The incisions are dressed with Steri-Strips on both sides. The breast is dressed with fluffs, ABD gauze, and a surgical bra. She is awoken from anesthesia, having tolerated the procedure well, transferred to recovery without complication. SONYA MORELAND M.D. [id number]
--- NOTE | 2017-03-11 12:56 | PATH ---
Surgical Pathology Report Patient Name: MIR CHRISTIANSON Med. Rec. #: [id number] /Age/Gender: 1955 (Age: 61) / F Account: [id number] Location: [facility]G Taken: 03/06/2017 Received: 03/06/2017 Reported: 03/11/2017 Physicians: Santiago Burroughs M.D. Specimen(s) Received A: RIGHT BREAST, REDUCTION B: LEFT BREAST, MASTECTOMY C: LEFT AXILLARY CONTENTS Clinical History Left breast cancer Final Diagnosis A. BREAST, RIGHT, REDUCTION MAMMOPLASTY: BENIGN BREAST TISSUE WITH FIBROCYSTIC CHANGE. BENIGN SKIN. B. BREAST, LEFT, MASTECTOMY: INVASIVE MUCINOUS CARCINOMA WITH MICROPAPILLARY FEATURES, INTERMEDIATE NUCLEAR GRADE. INVASIVE CARCINOMA FOCALITY AND SIZE: LARGEST FOCUS, 3.5 CM (GROSS MEASUREMENT) IN THE UPPER INNER QUADRANT, SEVERAL FOCI OF MICROINVASION ASSOCIATED WTH DCIS IN THE UPPER AND LOWER OUTER QUADRANTS. TREATMENT RELATED CHANGES PRESENT IN THE LARGEST FOCUS OF INVASIVE CARCINOMA (MILD). EXTENSIVE DUCTAL CARCINOMA IN SITU (DCIS), INTERMEDIATE NUCLEAR GRADE, CRIBRIFORM AND MICROPAPILLARY TYPES, WITH CENTRAL COMEDO-TYPE NECROSIS. DCIS EXTENT: DCIS IS MAJOR (>25%), PRESENT IN IN ALL FOUR QUADRANT, IN ASSOCIATION WITH INVASIVE CARCINOMA AND AWAY FROM IT. SURGICAL RESECTION MARGINS: NEGATIVE FOR INVASIVE CARCINOMA; CLOSEST MARGIN (DEEP) IS 2.0 MM AWAY FROM INVASIVE CARCINOMA; DCIS IS FOCALLY 1.0 MM FROM THE DEEP MARGIN. SKIN: NOT INVOLVED BY CARCINOMA. NIPPLE: NOT INVOLVED BY DCIS. LYMPHOVASCULAR INVASION: FOCALLY IDENTIFIED. SURROUNDING BREAST TISSUE: FIBROCYSTIC CHANGES USUAL DUCTAL HYPERPLASIA, DUCT DILATATION AND STROMAL FIBROSIS. PATHOLOGIC STAGING: ympT2 ypN1a (ALSO REFER TO CHECKLIST BELOW) RECEPTOR STATUS: REFER TO CHECKLIST BELOW. Comment: The sections show pools of mucin with scattered cellular foci comprised of neoplastic cellular clusters with micropapillary pattern. Extensive DCIS with foci of microinvasion is also present. Immunohistochemical stains for SMM-HC and p63 performed and interpreted at [facility] on block B12 show focal loss of myoepithelial cells in the areas of microinvasion. C. ADDITIONAL AXILLARY CONTENTS, LEFT, DISSECTION: TWO OF EIGTH LYMPH NODES POSITIVE FOR METASTATIC CARCINOMA (2/8). LARGEST TUMOR DEPOSIT: MULTIPLE RESIDUAL TUMOR FOCI PRESENT, LARGEST IS 0.7 CM. EXTRANODAL EXTENSIONS: NOT IDENTIFIED. EXTENSIVE POST-THERAPEUTIC FIBROSIS PRESENT. Comments Breast Invasive Carcinoma: Surgical Pathology Cancer Case Summary Based on AJCC/UICC TNM, 7th edition Procedure _x_ Total mastectomy (including nipple and skin) Lymph Node Sampling _x_ Axillary dissection (partial or complete dissection) Specimen Laterality _x_ Left Tumor Size: Size of Largest Invasive Carcinoma Greatest dimension of largest focus of invasion over 3.5 cm (35 mm) Tumor Focality Multiple foci of invasive carcinoma Number of foci: 3.5 cm largest focus in the UIQ and several foci of microinvasion associated with DCIS (LOQ and UOQ) Macroscopic and Microscopic Extent of Tumor Skin _x_ Invasive carcinoma does not invade into the dermis or epidermis Nipple _x_ DCIS does not involve the nipple epidermis Skeletal Muscle _x_ Not involved by carcinoma Ductal Carcinoma In Situ (DCIS) _x_ DCIS is present _x_ as a major component (>25% of tumor, extensive intraductal component) Histologic Type of Invasive Carcinoma: _x_ Mucinous carcinoma with micropapillary features Histologic Grade: (Antione Histologic Score) Tubular Differentiation _x_ Score 2 Nuclear Pleomorphism _x_ Score 2 Mitotic Rate _x_ Score 1 Overall Grade _x_ Cannot be determined (mucinous carcinoma with micropapillary features) Margins _x_ Margins uninvolved by invasive carcinoma Distance from closest margin: 2.0 mm Specify margin: deep _x_ DCIS is focally 1.0 mm from the deep margin Lymph-Vascular Invasion _x_ Focally identified Lymph Nodes Total number of lymph nodes examined (sentinel and nonsentinel): 8 Number of sentinel lymph nodes examined: 0 Number of lymph nodes with macrometastases (> 2 mm): 2 Number of lymph nodes with micrometastases (>0.2 mm to 2 mm and/or >200cells):0 Number of lymph nodes with isolated tumor cells (=0.2 mm and =200 cells): 0 Size of largest metastatic deposit (if present): 0.7 cm Extranodal Extension _x_ Not identified Pathologic Staging (pTNM) Primary Tumor (Invasive Carcinoma): ympT2 Regional Lymph Nodes (pN): ypN1a Distant Metastasis (pM): not applicable Biomarker Studies Results of ER and MI studies performed on prior biopsy (D17-20) at [facility] are as follows: ER (clone [id number] mouse monoclonal antibody by [employer]): >95% nuclear staining with moderate intensity (POSITIVE). MI (clone16 mouse monoclonal antibody by [employer]): 0% nuclear staining with moderate intensity (NEGATIVE). Results of Her2 (IHC) & Ki-67 studies performed on prior biopsy (D17-20) at [place], [place] ( ET17-27) are as follows: Her2 IHC (EP3 from [employer], formerly known as [id number], using Pinzon Polymer Refine detection kit): 3+ (POSITIVE) Ki67: ~20% (Intermediate proliferation index) Positive and negative controls (internal if applicable) showed appropriate results. Formalin fixation and cold ischemic times were within current ASCO/CAP recommendations for ER, MI and Her2 testing. Electronically Signed Hansel Lindsay M.D. Gross Description A. Received in formalin labeled "right breast reduction" is a 563 g, 24.0 x 13.0 x 5.0 cm aggregate of multiple irregular, unoriented portions of fibroadipose tissue and salmon, unremarkable skin. Sectioning reveals multiple foci of white fibrous tissue. Biblical Languages Professor sections are submitted in 5 cassettes. B. Received in formalin, labeled "left breast mastectomy" is a 1913 gram, 27.0 x 20.0 x 8.5 cm left mastectomy specimen with a short suture marking the superior aspect and a long suture marking the lateral aspect of the specimen, per the surgeon. The anterior surface displays a 25.5 x 15.0 cm salmon, elliptical portion of skin with a 1.2 cm diameter nipple. The deep margin is inked black and the anterior soft tissue margin is inked blue. The specimen is serially sectioned from medial to lateral. Sectioning reveals a 3.5 x 3.0 x 2.6 cm salmon, indurated, mucinous appearing mass in the upper inner quadrant (UIQ). The mass is grossly at 3 mm from the deep margin. The remaining breast parenchyma displays multiple foci of white fibrous tissue. Biblical Languages Professor sections are submitted in 19 cassettes as follows: 1-serially sectioned nipple; 2-subareolar shave; 3-5-mass; 0-7-yahrbpkper UIQ tissue; 8-9-lower inner quadrant; 10-11-upper outer quadrant; 12-16-lower outer quadrant; 17-anterior soft tissue margin; 18-skin; 19-deep margin. Time to fixation: not indicated Total formalin fixation time: Approximately 76 hours C. Received in formalin labeled "additional left axillary contents" is a 7.5 x 5.0 x 4.5 cm aggregate of yellow, lobulated adipose tissue. Sectioning reveals multiple salmon, irregular lymph nodes. The lymph nodes are entirely submitted in 13 cassettes as follows: 1-one whole lymph node; 2-6-one bisected lymph node each; 7-8-one bisected lymph node; 9-10-one trisected lymph node; 37-49-tjroqvuhzi retail field representative fat. DL03/06/2017 saudi03/06/2017
== END 2017-03-09 13:40 | disposition home or self-care (01) | DRG 362 ==
LOC: JSAMEDAYSX 06:34 → EDSTATUS 08:00 → J8W 17:30
PROVIDERS: ADMIT Surgery; ATTEND Surgery
PROC: 0HRU0JZ Replacement of Left Breast with Synthetic Substitute, Open Approach (ICD-10-PCS; 2017-03-06)
PROC: 0HQT0ZZ Repair Right Breast, Open Approach (ICD-10-PCS; 2017-03-06)
PROC: 4A1GXSH Monitoring of Skin and Breast Vascular Perfusion using Indocyanine Green Dye, External Approach (ICD-10-PCS; 2017-03-06)
PROC: 0HTU0ZZ Resection of Left Breast, Open Approach (ICD-10-PCS; principal; 2017-03-06 08:00)
PROC: 07B60ZX Excision of Left Axillary Lymphatic, Open Approach, Diagnostic (ICD-10-PCS; 2017-03-06 08:00)
PROC: 0HHU0NZ Insertion of Tissue Expander into Left Breast, Open Approach (ICD-10-PCS; 2017-03-06 08:00)
DX: C50.912 Malignant neoplasm of unspecified site of left female breast (principal); C77.3 Secondary and unspecified malignant neoplasm of axilla and upper limb lymph nodes; Z17.0 Estrogen receptor positive status [ER+]; N65.1 Disproportion of reconstructed breast; I10 Essential (primary) hypertension; M19.90 Unspecified osteoarthritis, unspecified site; E66.8 Other obesity; Z68.34 Body mass index [BMI] 34.0-34.9, adult
CPT/HCPCS: 88305-TC; 88307-TC; 88341-TC; 94760; J1644

== ENCOUNTER 2017-09-16 10:34 | Day surgery (SDC) | payer OTHER ==
[2017-09-10 09:16] VITALS: BMI 36.3
[2017-09-16] MEDS ORDERED: GENTAMICIN SO4 80 MG/2 ML VIAL ONE (12:35)
[2017-09-16] MEDS ORDERED: ceFAZolin SODIUM 1 GM VIAL ONE (12:35)
[2017-09-16] MEDS ORDERED: fentaNYL CITRATE 250 MCG/5 ML VIAL ONE (12:53)
[2017-09-16] MEDS ORDERED: PROPOFOL 20 ML ONE ×2 (12:54)
[2017-09-16] MEDS ORDERED: ROCURONIUM BROMIDE 50 MG/5 ML VIAL ONE (12:54)
[2017-09-16] MEDS ORDERED: MIDAZOLAM HCL 2 MG/2 ML SINGLE DOSE VIAL ONE ×2 (12:54→13:17)
[2017-09-16] MEDS ORDERED: ePHEDrine SULFATE 50 MG/1 ML AMPULE ONE (12:54)
[2017-09-16] MEDS ORDERED: SUCCINYLCHOLINE CHLORIDE 200 MG/10 ML VIAL ONE (12:54)
[2017-09-16] MEDS ORDERED: oxyCODONE HCL 5 MG TABLET PO PRN ×2 (15:16)
[2017-09-16] MEDS ORDERED: ONDANSETRON 4 MG/2 ML VIAL IVPB PRN (15:16)
--- NOTE | 2017-09-16 15:19 | OP ---
Operative Note - Note: Operative Date: 09/16/17 Pre-Operative Diagnosis: left breast cancer Operation: left breast capsulotomy with implant exchange and acellular dermal matrix placement Findings: above Implants: 550 gel implant Post-Operative Diagnosis: Same as Pre-op Surgeon: Calvin Moreland Anesthesia: General Operative Report Dictated: Yes
[2017-09-16] MEDS ORDERED: ONDANSETRON 4 MG/2 ML VIAL IVPUSH PRN (15:22)
[2017-09-16] MEDS ORDERED: LACTATED RINGERS SOLUTION 1,000 ML IV SCH ×2 (15:30)
[2017-09-16 17:48] VITALS: BP 152/85; PULSE 72; TEMP 98
--- NOTE | 2017-09-16 22:44 | OP ---
DATE OF OPERATION: 09/16/2017 PROCEDURE: Left 2nd stage breast reconstruction capsulotomy with removal of implant, replacement with a new silicone gel smooth round breast prosthesis and application of new additional acellular dermal matrix. ATTENDING SURGEON: Sonya Galdamez MD ANESTHESIA: General endotracheal anesthesia, Dr. Castro. PREOPERATIVE DIAGNOSIS: Left-sided breast cancer with tissue content publisher in place. POSTOPERATIVE DIAGNOSIS: Left-sided breast cancer with tissue content publisher in place. DESCRIPTION: The patient was marked in the holding area. Risks, benefits and alternatives to the procedure are discussed at length. The patient is counseled on the risks inherent implant reconstruction in irradiated tissue, which she understands; however, the patient at this point is not willing to do autologous breast reconstruction. She additionally is counseled on the natural asymmetry and does not want further surgery on her right breast. She is aware of incisions and resulting scars, counseled on risks, benefits, and alternatives to the procedure, understands and agrees to proceed. Then 2 g of Ancef were given preoperatively. TEDs and sequential compression devices are applied preoperatively. She was brought to the operating room, placed in supine position, positioned awake. Position is carefully checked by surgical and anesthesia teams. She is then prepped and draped in standard surgical fashion. A timeout is called. Patient, procedure, side and sites are verified. At this point, incision is made along the existing mastectomy scar of the left breast and dissection carried down to the level of the periprosthetic capsule. A capsulotomy is performed, through which the existing tissue content publisher is removed. The volume of the tissue content publisher is verified at 550 mL of saline. As noted preoperatively, the capsule has to be released and reinforced inferiorly in order to accommodate the implant which must occupy a more inferior position than the tissue content publisher. These capsulotomies are made inferiorly. The result, however, is a relatively thin area of skin laterally, which was anticipated and will require reinforcement with a strip of acellular dermal matrix. Dermasil ADM is brought onto the field. It is rinsed in triple-antibiotic solution. It is oriented and parachuted into the defect at the area of the thin supporting tissues. One sheet is used. It is cut in half, roughly an 8 x 8 segment of acellular dermal matrix placed laterally. This is secured with interrupted 3-0 PDS suture. The fitting is done over a sterile breast prosthetic sizer. At the completion of this, the sizer is removed. The pocket is irrigated with triple-antibiotic solution. Standard triple-antibiotic solution is used, after which, gloves were changed. The implant is brought onto the field using a one-touch technique. The implant is placed, is an Allergan Ubitricitye SRF-560 smooth round silicone gel implant. It is oriented properly, placed into the pocket, and the capsule is then closed, incorporating the AlloDerm with a running locking 3-0 PDS suture. The deep fatty tissue is then closed. Revision of a medial dog ear of the breast is performed by excision of skin and fat. Hemostasis is achieved. The patient is brought to a seated upright position, where the placement of the implant is able to be assessed to be optimally symmetric to the contralateral side. Skin closure is then performed with a series of interrupted buried deep dermal 3-0 Monocryl suture followed by running subcuticular 3-0 Monocryl suture. The incisions are dressed with full-length half-inch Steri-Strips. The patient is fitted with a surgical bra, awoken from anesthesia, transferred to recovery without complication. SONYA GALDAMEZ M.D. [id number]
--- NOTE | 2017-09-22 15:13 | PATH ---
Surgical Pathology Report Patient Name: MIR CHRISTIANSON [facility] Rec. #: [id number] /Age/Gender: 1955 (Age: 61) / F Account: [id number] Location: [facility] Taken: 09/16/2017 Received: 09/16/2017 Reported: 09/22/2017 Physicians: Calvin Moreland Specimen(s) Received A: LEFT BREAST TISSUE IMAGING SPECIALIST B: LEFT BREAST MASTECTOMY TISSUE Clinical History Breast cancer Final Diagnosis A. TISSUE IMAGING SPECIALIST, LEFT BREAST, REMOVAL: TISSUE IMAGING SPECIALIST, DESCRIBED (GROSS ONLY). B. MASTECTOMY TISSUE, LEFT BREAST, EXCISION: SKIN SHOWING SCAR. FIBROADIPOSE TISSUE SHOWING CHANGES OF PRIOR PROCEDURE. Electronically Signed Nellie Olguin M.D. Gross Description A. Received fresh labeled "left breast tissue semiconductor package symbol stamper," is a 16.0 x 13.0 x 4.0 cm salmon foreign body, consistent with a breast tissue semiconductor package symbol stamper. No soft tissue is present. No sections are submitted, gross only. B. Received in formalin labeled "left breast mastectomy tissue," is a 23 g, 7.0 x 2.0 cm brown, unoriented portion of skin with underlying soft tissue. The epidermal surface displays a possible well-healed scar. Sectioning reveals foci of white fibrous tissue. Laboratory Supervisor sections are submitted in 2 cassettes. /09/17/2017 [facility]/17/2017
== END 2017-09-16 17:50 | disposition home or self-care (01) ==
LOC: FASU 10:34
PROVIDERS: ATTEND Plastic Surgery
PROC: 0HRU0JZ Replacement of Left Breast with Synthetic Substitute, Open Approach (ICD-10-PCS; 2017-09-16)
PROC: 0HNU0ZZ Release Left Breast, Open Approach (ICD-10-PCS; 2017-09-16)
PROC: 0HPU0NZ Removal of Tissue Expander from Left Breast, Open Approach (ICD-10-PCS; principal; 2017-09-16 13:43)
DX: C50.812 Malignant neoplasm of overlapping sites of left female breast (principal)
CPT/HCPCS: 88300-TC; 88304-TC; 94760